=== PATIENT | female | born 1975 | race Caucasian/White ===

== ENCOUNTER → 2017-01-26 | Outpatient (CLI) | payer BC ==
[2017-01-26 10:00] LABS: BASOPHILS % 0.6 % (0.0-2.0); EOSINOPHILS % 2.6 % (0.0-5.0); HEMATOCRIT. 34.9 % (36.0-48.0); HEMOGLOBIN. 11.7 g/dL (12.0-16.0); MEAN CORPUSCULAR HEMOGLOBIN 28.3 pg (28.0-32.0); MEAN CORPUSCULAR HGB CONC 33.5 g/dL (31.0-37.0); MEAN CORPUSCULAR VOLUME 84.7 fL (81.0-99.0); MEAN PLATELET VOLUME 8.6 fl (7.4-10.4); MONOCYTES % 5.9 % (2.0-8.0); NEUTROPHILS % 64.9 % (40.0-76.0); PLATELET 291 x1000/uL (130-400); RED BLOOD CELL COUNT 4.12 mill/uL (4.2-5.4); WHITE BLOOD COUNT 10.6 x1000/uL (4.5-11.0)
[2017-01-26 10:08] LABS: PARTIAL THROMBOPLASTIN TIME 31.8 sec (24.0-34.0); PROTHROMBIN TIME 10.3 sec
[2017-01-26 10:14] LABS: CLARITY URINE CLEAR (CLEAR); COLOR URINE YELLOW (YELLOW); GLUCOSE URINE NEGATIVE (NEGATIVE); KETONES URINE NEGATIVE (NEGATIVE); LEUKOCYTE ESTERASE URINE 3+ (NEGATIVE); NITRITE URINE NEGATIVE (NEGATIVE); OCCULT BLOOD URINE NEGATIVE (NEGATIVE); PROTEIN URINE NEGATIVE (NEGATIVE); SPECIFIC GRAVITY URINE 1.017 (1.005-1.030); UROBILINOGEN URINE 0.2 E.U./dL (0.2-1.0)
[2017-01-26 10:29] LABS: ALANINE AMINOTRANSFERASE 26 IU/L (13-61); ALBUMIN 3.6 g/dL (3.4-5.0); ANION GAP 10; CALCIUM 8.6 mg/dL (8.5-10.1); CARBON DIOXIDE 28 mEq/L (21-32); CHLORIDE 103 mEq/L (98-107); HDL CHOLESTEROL 46 mg/dL (40-59); INDEX HEMOLYSI 1 (1-3); INDEX ICTERIC 1 (1-4); INDEX LIPEMIC 1 (1-3); LDL CHOLESTEROL 153 mg/dL (5-100); T3 FREE 2.71 pg/ml (2.18-3.98); T4 FREE 0.83 ng/dL (0.76-1.46); TRIGLYCERIDE 120 mg/dL (0-150); UREA NITROGEN BLOOD 11 mg/dL (7-21); eGFR > 60 mL/min (>60)
[2017-01-26 10:36] LABS: SQUAMOUS EPITHELIAL CELL URINE 3+ /lpf (RARE/1+); WBC URINE 25-50 /hpf (0-2)
[2017-01-26 10:38] LABS: BACTERIA URINE 2+; RBC URINE 0-2 /hpf (0-2); YEAST URINE 2+
== END | disposition home or self-care (01) ==
LOC: LAB 09:41
DX: Z00.00 Encounter for general adult medical examination without abnormal findings (principal)
CPT/HCPCS: 36415; 80053; 80061; 81001; 83036; 84439; 84443; 84481; 85025; 85610; 85730; 86677

== ENCOUNTER 2017-02-25 15:20 | Emergency (ER) | payer BC ==
[~2017-02-25] VITALS: Ht 152.4 cm; Wt 64.5 kg
[2017-02-25] MEDS ORDERED: SODIUM CHLORIDE 0.9% 1,000 ML IV ONE (15:59)
[2017-02-25 16:38] LABS: BASOPHILS % 0.6 % (0.0-2.0); EOSINOPHILS % 2.5 % (0.0-5.0); HEMATOCRIT. 30.5 % (36.0-48.0); HEMOGLOBIN. 10.3 g/dL (12.0-16.0); LYMPHOCYTES % 30.7 % (20.0-50.0); MEAN CORPUSCULAR HEMOGLOBIN 28.4 pg (28.0-32.0); MEAN CORPUSCULAR HGB CONC 33.8 g/dL (31.0-37.0); MEAN CORPUSCULAR VOLUME 84.2 fL (81.0-99.0); MEAN PLATELET VOLUME 8.6 fl (7.4-10.4); NEUTROPHILS % 59.2 % (40.0-76.0); PLATELET 299 x1000/uL (130-400); RED BLOOD CELL COUNT 3.63 mill/uL (4.2-5.4); RED CELL DISTRIBUTION WIDTH 13.2 % (11.6-14.6); WHITE BLOOD COUNT 10.1 x1000/uL (4.5-11.0)
[2017-02-25 16:44] LABS: CHLORIDE 107 mEq/L (98-107)
[2017-02-25 16:45] LABS: INR 1.1
[2017-02-25 16:55] LABS: ALANINE AMINOTRANSFERASE 24 IU/L (13-61); ALBUMIN 3.4 g/dL (3.4-5.0); ANION GAP 14; B-HCG QUANTITATIVE < 1 mIU/mL (<3); CALCIUM 7.9 mg/dL (8.5-10.1); CARBON DIOXIDE 24 mEq/L (21-32); INDEX HEMOLYSI 1 (1-3); INDEX ICTERIC 1 (1-4); INDEX LIPEMIC 1 (1-3); LIPASE 118 IU/L (73-393); TROPONIN I < 0.02 ng/mL (0.00-0.04); UREA NITROGEN BLOOD 10 mg/dL (7-21); eGFR > 60 mL/min (>60)
[2017-02-25 18:21] VITALS: BP 122/78
== END 2017-02-25 19:01 | disposition home or self-care (01) ==
LOC: ER 15:21
DX: D25.9 Leiomyoma of uterus, unspecified (principal); N93.9 Abnormal uterine and vaginal bleeding, unspecified; E78.00 Pure hypercholesterolemia, unspecified
CPT/HCPCS: 36415; 76830; 76856; 80053; 83690; 84484; 84702; 85025; 85610; 86850; 86900; 86901; 96360; 99285; Z7610; J7030

== ENCOUNTER 2018-02-04 08:46 | Emergency (ER) | payer BC ==
[~2018-02-04] VITALS: Ht 157.5 cm; Wt 65.0 kg
[2018-02-04 09:02] VITALS: BP 132/79
[2018-02-04 10:02] LABS: HCG SCREEN NEGATIVE
== END 2018-02-04 10:52 | disposition home or self-care (01) ==
LOC: ER 09:20
DX: Z32.02 Encounter for pregnancy test, result negative (principal)
CPT/HCPCS: 36415; 84702; 84703; 99284

== ENCOUNTER 2018-05-19 22:15 | Emergency (ER) | payer BC ==
[~2018-05-19] VITALS: Ht 162.6 cm; Wt 55.0 kg
[2018-05-19] MEDS ORDERED: ASPIRIN 325MG TABLET PO ONE (23:30)
[2018-05-19 23:44] LABS: BASOPHILS % 1.2 % (0.0-2.0); EOSINOPHILS % 1.1 % (0.0-5.0); HEMATOCRIT. 33.1 % (36.0-48.0); HEMOGLOBIN. 11.2 g/dL (12.0-16.0); LYMPHOCYTES % 33.5 % (20.0-50.0); MEAN CORPUSCULAR HEMOGLOBIN 28.7 pg (28.0-32.0); MEAN CORPUSCULAR VOLUME 84.9 fL (81.0-99.0); MEAN PLATELET VOLUME 9.3 fl (7.4-10.4); MONOCYTES % 6.4 % (2.0-8.0); NEUTROPHILS % 57.8 % (40.0-76.0); PLATELET 305 x1000/uL (130-400); RED BLOOD CELL COUNT 3.91 mill/uL (4.2-5.4); RED CELL DISTRIBUTION WIDTH 13.2 % (11.6-14.6)
[2018-05-19 23:51] LABS: CHLORIDE 108 mEq/L (98-107)
[2018-05-19 23:52] LABS: PROTHROMBIN TIME 10.9 sec (9.4-11.6)
[2018-05-19 23:54] LABS: ETHANOL BLOOD < 10 mg/dL
[2018-05-19 23:58] LABS: LDL CHOLESTEROL 140 mg/dL (5-100)
[2018-05-20] MEDS ORDERED: PREDNISONE 20MG TABLET PO ONE (00:30)
[2018-05-20 00:49] VITALS: BP 119/65
== END 2018-05-20 01:20 | disposition home or self-care (01) ==
LOC: ER 22:15
DX: G51.0 Bell's palsy (principal); E78.00 Pure hypercholesterolemia, unspecified; R79.1 Abnormal coagulation profile; Z79.82 Long term (current) use of aspirin
CPT/HCPCS: 36415; 70450; 70496; 70498; 71045; 80053; 83721; 84484; 85025; 85610; 93005; 99291; G0482; J7512; Z7610

== ENCOUNTER → 2018-05-21 | Outpatient (CLI) | payer BC ==
[2018-05-21 17:16] LABS: BASOPHILS % 0.3 % (0.0-2.0); HEMATOCRIT. 34.4 % (36.0-48.0); HEMOGLOBIN. 11.4 g/dL (12.0-16.0); LYMPHOCYTES % 9.3 % (20.0-50.0); MEAN CORPUSCULAR HEMOGLOBIN 28.3 pg (28.0-32.0); MEAN CORPUSCULAR VOLUME 85.2 fL (81.0-99.0); MEAN PLATELET VOLUME 9.3 fl (7.4-10.4); NEUTROPHILS % 88.4 % (40.0-76.0); PLATELET 321 x1000/uL (130-400); RED BLOOD CELL COUNT 4.04 mill/uL (4.2-5.4); RED CELL DISTRIBUTION WIDTH 13.5 % (11.6-14.6)
[2018-05-21 17:25] LABS: CHLORIDE 106 mEq/L (98-107)
[2018-05-21 17:32] LABS: LDL CHOLESTEROL 145 mg/dL (5-100); TOTAL IRON BINDING CAPACITY 354 ug/dL (250-450)
[2018-05-21 17:33] LABS: HDL CHOLESTEROL 42 mg/dL (40-59)
[2018-05-21 17:50] LABS: FOLIC ACID (FOLATE) SERUM >20 ng/mL ng/mL (>5.38)
[2018-05-21 18:01] LABS: VITAMIN B12 SERUM 480 pg/mL (211-911)
[2018-05-21 20:45] LABS: CLARITY URINE CLEAR (CLEAR); COLOR URINE YELLOW (YELLOW); KETONES URINE NEGATIVE (NEGATIVE); LEUKOCYTE ESTERASE URINE TRACE (NEGATIVE); NITRITE URINE NEGATIVE (NEGATIVE); OCCULT BLOOD URINE NEGATIVE (NEGATIVE); PROTEIN URINE NEGATIVE (NEGATIVE); SPECIFIC GRAVITY URINE 1.008 (1.005-1.030); UROBILINOGEN URINE 0.2 E.U./dL (0.2-1.0)
== END | disposition home or self-care (01) ==
LOC: LAB 16:33
PROVIDERS: ATTEND Internal Medicine Geriatric Medicine
DX: Z00.01 Encounter for general adult medical examination with abnormal findings (principal); Z13.1 Encounter for screening for diabetes mellitus; N39.0 Urinary tract infection, site not specified
CPT/HCPCS: 36415; 80053; 80061; 81003; 82306; 82607; 82746; 83036; 83540; 83550; 84443; 85025; 86592; 87086

== ENCOUNTER → 2018-05-29 | Outpatient (CLI) | payer BC | END | disposition home or self-care (01) | LOC: MRI 09:02 | PROVIDERS: ATTEND Nurse Practitioner Family | DX: G51.0 Bell's palsy (principal); E78.00 Pure hypercholesterolemia, unspecified; Z79.82 Long term (current) use of aspirin | CPT/HCPCS: 70551 ==

== ENCOUNTER → 2018-07-24 | Outpatient (CLI) | payer BC ==
[2018-07-24 12:34] LABS: BASOPHILS % 0.5 % (0.0-2.0); EOSINOPHILS % 1.2 % (0.0-5.0); HEMATOCRIT. 31.6 % (36.0-48.0); LYMPHOCYTES % 24.2 % (20.0-50.0); MEAN CORPUSCULAR HEMOGLOBIN 29.3 pg (28.0-32.0); MEAN CORPUSCULAR VOLUME 84.4 fL (81.0-99.0); MEAN PLATELET VOLUME 7.8 fl (7.4-10.4); MONOCYTES % 5.2 % (2.0-8.0); NEUTROPHILS % 68.9 % (40.0-76.0); PLATELET 499 x1000/uL (130-400); RED BLOOD CELL COUNT 3.75 mill/uL (4.2-5.4); RED CELL DISTRIBUTION WIDTH 13.1 % (11.6-14.6)
[2018-07-24 12:45] LABS: CHLORIDE 102 mEq/L (98-107)
[2018-07-24 12:54] LABS: T4 FREE 0.99 ng/dL (0.76-1.46)
[2018-07-24 13:05] LABS: TRIOIODOTHYRONINE TOTAL 1.13 ng/ml (0.60-1.81)
[2018-07-25 19:08] LABS: ANTI-NUCLEAR ANTIBODIES DIRECT Negative (Negative)
[2018-07-26 09:06] LABS: ANGIOTENSION CONVERTING ENZYME 30 U/L (14-82)
== END | disposition home or self-care (01) ==
LOC: LAB 11:54
PROVIDERS: ATTEND Psychiatry & Neurology Neurology
DX: H02.409 Unspecified ptosis of unspecified eyelid (principal)
CPT/HCPCS: 36415; 80053; 82164; 82607; 83036; 83519; 84439; 84443; 84480; 85025; 85651; 86038; 86592; 86618

== ENCOUNTER 2019-04-19 15:10 | Emergency (ER) | payer BC ==
[~2019-04-19] VITALS: Ht 152.4 cm; Wt 65.0 kg
[2019-04-19 16:00] LABS: HEMATOCRIT 36.5 % (36.0-48.0); HEMOGLOBIN 12.3 g/dL (12.0-16.0); MEAN CORPUSCULAR HEMOGLOBIN 28.8 pg (28.0-32.0); MEAN CORPUSCULAR VOLUME 85.2 fL (81.0-99.0); PLATELET 335 x1000/uL (130-400); RED BLOOD CELL COUNT 4.29 mill/uL (4.2-5.4); RED CELL DISTRIBUTION WIDTH 12.9 % (11.6-14.6)
[2019-04-19 16:04] LABS: CHLORIDE 105 mEq/L (98-107)
[2019-04-19 16:04] LABS: CLARITY URINE CLEAR (CLEAR); COLOR URINE YELLOW (YELLOW); KETONES URINE NEGATIVE (NEGATIVE); LEUKOCYTE ESTERASE URINE 2+ (NEGATIVE); NITRITE URINE NEGATIVE (NEGATIVE); OCCULT BLOOD URINE NEGATIVE (NEGATIVE); PH URINE 6.5 (4.5-8.0); PROTEIN URINE NEGATIVE (NEGATIVE); SPECIFIC GRAVITY URINE 1.016 (1.005-1.030); UROBILINOGEN URINE 0.2 E.U./dL (0.2-1.0)
[2019-04-19] MEDS ORDERED: SULFAMETHOXAZOLE/TRIMETHOPRIM 800/160MG TABLET PO ONE (18:45)
[2019-04-19 18:51] VITALS: BP 123/71
== END 2019-04-19 18:52 | disposition home or self-care (01) ==
LOC: ER 15:13
DX: G50.0 Trigeminal neuralgia (principal); N39.0 Urinary tract infection, site not specified; R42 Dizziness and giddiness; D72.829 Elevated white blood cell count, unspecified; E86.0 Dehydration; R73.9 Hyperglycemia, unspecified; R82.71 Bacteriuria; N17.0 Acute kidney failure with tubular necrosis; R53.81 Other malaise; R53.83 Other fatigue; H57.12 Ocular pain, left eye; R78.89 Finding of other specified substances, not normally found in blood
CPT/HCPCS: 36415; 81025; 85027; 99284

== ENCOUNTER → 2019-06-07 | Outpatient (CLI) | payer BC ==
[2019-06-07 12:48] LABS: BASOPHILS % 0.4 % (0.0-2.0); EOSINOPHILS % 1.2 % (0.0-5.0); HEMATOCRIT. 35.1 % (36.0-48.0); HEMOGLOBIN. 11.8 g/dL (12.0-16.0); MEAN CORPUSCULAR HEMOGLOBIN 28.8 pg (28.0-32.0); MEAN CORPUSCULAR VOLUME 85.3 fL (81.0-99.0); MEAN PLATELET VOLUME 8.5 fl (7.4-10.4); MONOCYTES % 5.6 % (2.0-8.0); NEUTROPHILS % 61.8 % (40.0-76.0); PLATELET 329 x1000/uL (130-400); RED BLOOD CELL COUNT 4.11 mill/uL (4.2-5.4); RED CELL DISTRIBUTION WIDTH 13.1 % (11.6-14.6)
[2019-06-07 13:02] LABS: CHLORIDE 104 mEq/L (98-107)
[2019-06-07 13:07] LABS: CLARITY URINE CLEAR (CLEAR); COLOR URINE YELLOW (YELLOW); KETONES URINE NEGATIVE (NEGATIVE); LEUKOCYTE ESTERASE URINE 3+ (NEGATIVE); NITRITE URINE NEGATIVE (NEGATIVE); OCCULT BLOOD URINE 1+ (NEGATIVE); PROTEIN URINE NEGATIVE (NEGATIVE); SPECIFIC GRAVITY URINE 1.007 (1.005-1.030); UROBILINOGEN URINE 0.2 E.U./dL (0.2-1.0)
[2019-06-07 13:10] LABS: LDL CHOLESTEROL 171 mg/dL (5-100)
[2019-06-07 13:12] LABS: HDL CHOLESTEROL 40 mg/dL (40-59)
[2019-06-07 13:14] LABS: TOTAL IRON BINDING CAPACITY 315 ug/dL (250-450)
[2019-06-07 13:31] LABS: VITAMIN B12 SERUM 565 pg/mL (211-911)
== END | disposition home or self-care (01) ==
LOC: LAB 12:20
PROVIDERS: ATTEND Internal Medicine Geriatric Medicine
DX: Z00.00 Encounter for general adult medical examination without abnormal findings (principal); N39.0 Urinary tract infection, site not specified; R73.09 Other abnormal glucose; E78.5 Hyperlipidemia, unspecified; E55.9 Vitamin D deficiency, unspecified
CPT/HCPCS: 36415; 80061; 82607; 83036; 83540; 83550; 84443; 86592

== ENCOUNTER 2020-07-28 09:22 | Observation (INO) | payer BC ==
[~2020-07-28] VITALS: Ht 152.4 cm; Wt 67.1 kg
[2020-07-28] MEDS ORDERED: ONDANSETRON HCL 4MG/2ML INJ IV STA (09:49)
[2020-07-28] MEDS ORDERED: MORPHINE SULFATE 4 MG/ML CPJ (NOT FOR IM USE) IV STA (09:49)
[2020-07-28] MEDS ORDERED: SODIUM CHLORIDE 0.9% 1,000 ML IV ONE (09:49)
[2020-07-28 10:41] LABS: BASOPHILS % 0.4 % (0.0-2.0); EOSINOPHILS % 1.3 % (0.0-5.0); HEMATOCRIT. 34.2 % (36.0-48.0); HEMOGLOBIN. 11.7 g/dL (12.0-16.0); LYMPHOCYTES % 37.1 % (20.0-50.0); MONOCYTES % 6.3 % (2.0-8.0); NEUTROPHILS % 54.9 % (40.0-76.0); PLATELET 330 x1000/uL (130-400); RED BLOOD CELL COUNT 4.02 mill/uL (4.2-5.4); RED CELL DISTRIBUTION WIDTH 12.9 % (11.6-14.6)
[2020-07-28 10:47] LABS: CHLORIDE 106 mEq/L (98-107)
[2020-07-28 10:51] LABS: PROTHROMBIN TIME 10.5 sec (9.6-11.0)
[2020-07-28 10:53] LABS: CLARITY URINE CLEAR (CLEAR); COLOR URINE YELLOW (YELLOW); KETONES URINE NEGATIVE (NEGATIVE); LEUKOCYTE ESTERASE URINE 1+ (NEGATIVE); NITRITE URINE NEGATIVE (NEGATIVE); OCCULT BLOOD URINE NEGATIVE (NEGATIVE); PROTEIN URINE NEGATIVE (NEGATIVE); SPECIFIC GRAVITY URINE 1.011 (1.005-1.030); UROBILINOGEN URINE 0.2 E.U./dL (0.2-1.0)
[2020-07-28] MEDS ORDERED: ACETAMINOPHEN 325MG TABLET PO PRN (16:30)
[2020-07-28 17:19] VITALS: BP 121/66
[2020-07-28] MEDS: HYDROMORPHONE HCL/PF 2MG/ML CPJ IV PRN (17:22)
[2020-07-28] MEDS: ENOXAPARIN 40MG/0.4ML SYR SUBCUT SCH (17:23)
[2020-07-28] MEDS ORDERED: LACTULOSE 20G/30ML UDC PO NR (18:00)
[2020-07-28] MEDS ORDERED: ONDANSETRON HCL 4MG/2ML INJ IV PRN (18:00)
[2020-07-28 18:28] VITALS: BP 121/66
[2020-07-28] MEDS: LEVOFLOXACIN 500MG PREMIX 100 ML IV SCH (19:22)
[2020-07-28 19:40] LABS: BASOPHILS % 0.2 % (0.0-2.0); EOSINOPHILS % 1.4 % (0.0-5.0); HEMOGLOBIN. 11.4 g/dL (12.0-16.0); LYMPHOCYTES % 43.6 % (20.0-50.0); MEAN CORPUSCULAR HEMOGLOBIN 28.8 pg (28.0-32.0); MEAN CORPUSCULAR VOLUME 85.8 fL (81.0-99.0); MEAN PLATELET VOLUME 9.1 fl (7.4-10.4); MONOCYTES % 5.9 % (2.0-8.0); NEUTROPHILS % 48.9 % (40.0-76.0); PLATELET 319 x1000/uL (130-400); RED BLOOD CELL COUNT 3.96 mill/uL (4.2-5.4); RED CELL DISTRIBUTION WIDTH 12.8 % (11.6-14.6)
[2020-07-28 19:53] LABS: CHLORIDE 107 mEq/L (98-107)
[2020-07-28 20:24] VITALS: BP 121/66
[2020-07-28] MEDS ORDERED: GABAPENTIN 300MG CAPSULE PO SCH (21:00)
[2020-07-29 00:01] VITALS: BP 94/53
[2020-07-29 04:00] VITALS: BP 90/47
[2020-07-29 07:05] LABS: BASOPHILS % 0.7 % (0.0-2.0); EOSINOPHILS % 1.1 % (0.0-5.0); HEMATOCRIT. 32.8 % (36.0-48.0); LYMPHOCYTES % 34.5 % (20.0-50.0); MEAN CORPUSCULAR HEMOGLOBIN 28.4 pg (28.0-32.0); MEAN PLATELET VOLUME 9.7 fl (7.4-10.4); MONOCYTES % 5.4 % (2.0-8.0); NEUTROPHILS % 58.3 % (40.0-76.0); PLATELET 297 x1000/uL (130-400); RED BLOOD CELL COUNT 3.86 mill/uL (4.2-5.4); RED CELL DISTRIBUTION WIDTH 12.9 % (11.6-14.6)
[2020-07-29 07:19] LABS: CHLORIDE 104 mEq/L (98-107)
[2020-07-29 08:00] VITALS: BP 104/53
[2020-07-29] MEDS ORDERED: GABA-531 PO (08:37)
[2020-07-29] MEDS ORDERED: LEVO500T2 PO (08:37)
[2020-07-29] MEDS: GABAPENTIN 300MG CAPSULE PO SCH ×2 (08:54→17:09)
[2020-07-29] MEDS ORDERED: DOCUSATE SODIUM 250MG CAPSULE PO SCH (09:00)
[2020-07-29 11:46] VITALS: BP 103/59
[2020-07-29] MEDS: HYDROMORPHONE HCL/PF 2MG/ML CPJ IV PRN (13:12)
[2020-07-29 16:00] VITALS: BP 97/53
[2020-07-29 16:03] VITALS: BP 97/53
[2020-07-29] MEDS: LEVOFLOXACIN 500MG PREMIX 100 ML IV SCH (17:09)
[2020-07-29] MEDS: ENOXAPARIN 40MG/0.4ML SYR SUBCUT SCH (17:18)
== END 2020-07-29 20:00 | disposition home or self-care (01) ==
LOC: ER 09:38 → INTOOBSV 13:35 → 8WST 13:35 → EDBEDREQTM 13:40 → EDBEDREQSVC 13:40 → EDBEDREQ 13:40 → ENRESERV 13:50
PROVIDERS: ADMIT Internal Medicine Geriatric Medicine; ATTEND Internal Medicine Geriatric Medicine
DX: N30.00 Acute cystitis without hematuria (principal); D25.9 Leiomyoma of uterus, unspecified; D64.9 Anemia, unspecified; M54.16 Radiculopathy, lumbar region; R73.9 Hyperglycemia, unspecified; Z79.899 Other long term (current) drug therapy
CPT/HCPCS: 36415; 72141; 72148; 74176; 76830; 76856; 80048; 80053; 81003; 82784; 83036; 83690; 85025; 85610; 87086; 93005; 96365; 96366; 96372; 96375; 96376; 99285; G0378; J1170; J1650; J1956; J2270; J2405; J7030

== ENCOUNTER 2021-05-14 07:24 | Emergency (ER) | payer BC ==
[~2021-05-14] VITALS: Ht 152.4 cm; Wt 67.0 kg
[~2021-05-14 07:24] MED LIST: GABA-532 PO; LEVO500T2 PO
[2021-05-14] MEDS ORDERED: ONDANSETRON 4MG ODT PO STA (07:55)
[2021-05-14] MEDS ORDERED: SODIUM CHLORIDE 0.9% 1,000 ML IV ONE ×2 (08:00→10:00)
[2021-05-14] MEDS ORDERED: ONDANSETRON HCL 4MG/2ML INJ IV ONE (08:15)
[2021-05-14 08:21] LABS: BASOPHILS % 0.6 % (0.0-2.0); HEMATOCRIT. 37.2 % (36.0-48.0); LYMPHOCYTES % 28.9 % (20.0-50.0); MEAN CORPUSCULAR HEMOGLOBIN 28.9 pg (28.0-32.0); MEAN CORPUSCULAR VOLUME 82.7 fL (81.0-99.0); MEAN PLATELET VOLUME 8.8 fl (7.4-10.4); MONOCYTES % 9.1 % (2.0-8.0); NEUTROPHILS % 60.4 % (40.0-76.0); PLATELET 319 x1000/uL (130-400); RED CELL DISTRIBUTION WIDTH 12.9 % (11.6-14.6)
[2021-05-14 08:25] LABS: CHLORIDE 105 mEq/L (98-107)
[2021-05-14 11:43] VITALS: BP 110/84
[2021-05-14] MEDS ORDERED: TOPUD PO (12:00)
[2021-05-14] MEDS ORDERED: ONDA4TAB5 PO (12:00)
== END 2021-05-14 12:35 | disposition home or self-care (01) ==
LOC: ER 07:24
DX: K52.9 Noninfective gastroenteritis and colitis, unspecified (principal); Z98.890 Other specified postprocedural states; R42 Dizziness and giddiness; Z79.899 Other long term (current) drug therapy
CPT/HCPCS: 36415; 80053; 85025; 93005; 96361; 96374; 99284; J2405; J7030; Z7610; Q0162